=== PATIENT | male | born 1970 | race Caucasian/White ===

== ENCOUNTER 2017-09-11 19:44 | Emergency (ER) | payer SELFPAY ==
[~2017-09-11] VITALS: Ht 162.5 cm; Wt 99.8 kg
[2017-09-11] MEDS ORDERED: AUGMENTIN 875-875 MG PO (21:40)
[2017-09-11] MEDS ORDERED: PROAIR HFA8.5 GM INH (22:01)
[2017-09-11] MEDS ORDERED: LEVAQUIN750 M1 PO (22:01)
== END 2017-09-11 22:05 | disposition home or self-care (01) ==
LOC: ED 19:44
DX: J18.9 Pneumonia, unspecified organism (principal); H65.93 Unspecified nonsuppurative otitis media, bilateral; I10 Essential (primary) hypertension

== ENCOUNTER 2017-10-26 07:51 | Inpatient (IN) | payer BC ==
[~2017-10-26] VITALS: Ht 162.5 cm; Wt 84.9 kg
[2017-10-26] VITALS (10 sets, daily range): BP systolic 126–176; BP diastolic 72–120
--- NOTE | ~2017-10-26 | PROC NOTE ---
[place], [place] PROCEDURE NOTE NAME: [facility]LE [id number] UNIT #: [id number] ROOM: 421 DOCTOR: DAVID GREENE MD,BERTRAM BIRTHDATE: [birth year] DOS: 10/29/2017 PROCEDURE NOTE Left-sided thoracentesis, ultrasound evaluation. PREOPERATIVE DIAGNOSIS: The patient with large left-sided pleural fluid. POSTOPERATIVE DIAGNOSIS: Removal of 1150 mL. Pleural fluid noted mildly hemorrhagic from the left pleural space without any difficulty or complication. PROCEDURE DESCRIPTION: Informed consent obtained for the patient. The patient was placed in a sitting position. Ultrasound was done on the patient's left side. The BiPAP for thoracentesis was ordered and marked. Skin was cleaned with chlorhexidine solution. Sterile field was achieved. Lidocaine 1% was administered in the skin intercostal space during administration of local anesthetic for this patient. The left pleural space was entered without any difficulty. Small amount of fluid was aspirated, which are noted mildly hemorrhagic. After that small incision given in the skin, Turkel thoracentesis catheter introduced into the incision into the left pleural space. An 1150 mL of pleural fluid was obtained for the patient ____ for the standpoint. Post-thoracentesis, ultrasound of the patient shows resolution of the pleural fluid completely. Chest x-ray done postprocedure shows marked improvement in aeration of the left lung without any pneumothorax. The pleural fluid from the right side, which is noted at least moderately. It is also assessed with the ultrasound. Pleural fluid was sent for the appropriate testing if necessary. BERTRAM HERNANDEZ MD CM:PROCNOTE:PROCEDURE NOTE [id number] BERTRAM GREENE MD
--- NOTE | ~2017-10-26 | PR ---
[place], [place] PROGRESS NOTE NAME: KYLE MICHELLE [facility] #: [id number] UNIT #: [id number] ROOM: 421 DOCTOR: DAVID GREENE MD,BERTRAM BIRTHDATE: [birth year] DOS: 10/30/2017 PULMONARY PROGRESS NOTE SUBJECTIVE: The patient has been noted comfortable, resting, sitting on the bed, was not noted without any symptoms of acute chest pain. Shortness of breath continued to resolve. Thoracentesis, left side was completed yesterday with large volume of pleural fluid was removed. The patient has not been noted symptoms of chest pain or any hemoptysis. Denies symptoms of coughing or any sputum expectoration. Denies symptoms of abdominal pain, nausea or vomiting. The patient has not been reported any edema or pain of the lower extremities. The remaining review of systems was noted as negative. OBJECTIVE: VITAL SIGNS: Normal temperature, respiratory rate 18, heart rate 83, blood pressure 130/85. Pulse oxygen saturation on room air 93% saturation. It was noted at rest. HEENT: The patient shows jylz-ol-sgozrpkd obesity. NECK: Supple. Head was atraumatic. Eye nonicterus. CARDIOVASCULAR: S1, S2 is audible. LUNGS: Noted with decreased breath sounds in the right lower lung. Remaining lung was clear. ABDOMEN: Soft, nontender, bowel sounds present. EXTREMITIES: Without any acute edema. CENTRAL NERVOUS SYSTEM: Cranial nerves 2-12 intact. MUSCULOSKELETAL: The patient noted without any acute deformity. VISIBLE SKIN: No lesions or rashes. LABORATORY DATA: CBC: WBC count 12.7, hemoglobin and hematocrit normal, platelet count were normal. BMP this morning, normal BUN and creatinine. Glucose 163, CO2 of 33. The chest x-ray of the patient post thoracentesis noted complete resolution of the pleural fluid and improvement in aeration of the left lung with moderate pleural fluid was noted. There was no finding of congestive heart failure. Pleural fluid analysis of yesterday of the left pleural fluid noted with a total of 198 WBCs with various differentials. Glucose 235. Total protein was 0.9, pH of 7.50. Cholesterol less than 50, albumin is 0.4, all consistent with a transudative effusion. IMPRESSION: 1. The patient with congestive heart failure, bilateral large pleural fluid still remaining pleural fluid and completely removed 2 days ago on the right side. 2. The patient with the diastolic dysfunction with congestive heart failure and/or debility. PLAN OF THERAPY: Thoracentesis will be repeated again in the right side to remove remaining pleural fluid. Continuation of diuretic bronchodilator treatment therapy, plan of management as in progress. Usual care, other supportive therapy, plan of care and management, plan of care. No other additional change in the treatment will be necessary. [place], [place] PROGRESS NOTE [facility]: [id number] UNIT #: [id number] ROOM: [facility] DOCTOR: BERTRAM MURPHY MD BIRTHDATE: [birth year] BERTRAM HERNANDEZ MD CM:PNTRANS [id number] BERTRAM GREENE MD 10/30/17 2322 interface
--- NOTE | ~2017-10-26 | EKG ---
[place], [place] ELECTROCARDIOGRAM REPORT [id number] UNIT #: [id number] ROOM: 421 DOCTOR: DAVID GREENE MD,BERTRAM BIRTHDATE: [birth year] DOS: 10/26/2017 Electrocardiogram was done on 10/26/2017 at 8:21 .m. The electrocardiogram showed normal sinus rhythm. The patient's heart rate 74 beats per minute. The LVH criteria would be met for this patient based on the current electrical leads voltage in the chest leads. T-wave inversion is also noted, most likely secondary to LVH ____. T-wave inversion was also noted in the lead 2. Prolonged QTC interval was also noted. BERTRAM HERANNDEZ MD CM:EKGRPT:ELECTROCARDIOGRAM REPORT 1040 [id number] BERTRAM GREENE MD
--- NOTE | ~2017-10-26 | PROC NOTE ---
[place], [place] PROCEDURE NOTE [id number] UNIT #: [id number] ROOM: 421 DOCTOR: DAVID GREENE MD,BERTRAM BIRTHDATE: [birth year] DOS: 10/31/2017 PREOPERATIVE DIAGNOSIS: Large recurrent right pleural fluid. POSTOPERATIVE DIAGNOSIS: Removal of 1750 mL of pleural fluid on the right side without any difficulty completely. PROCEDURE: Right-sided thoracentesis with ultrasound guidance. PROCEDURE DESCRIPTION: Informed consent was obtained from the patient. The patient was placed in a sitting position. Ultrasound of the chest was already performed. The site of thoracentesis, posterior lower chest wall was marked. After that, skin was cleaned with chlorhexidine solution, 1% lidocaine was administered in the skin at intercostal space without difficulty. A small amount of fluid was aspirated from the right pleural space. During administration of local anesthetic after that, a small incision was given in the skin. Turkel thoracentesis catheter was introduced through the incision into the right pleural space. A total of 1750 mL pleural fluid removed with a vacuum bottle without any difficulty. Procedure is well tolerated by the patient. Chest x-ray at this time was deferred. Ultrasound, which was performed at the end of the completion of thoracentesis shows minimal remaining pleural fluid at this time and there was no evidence of pneumothorax suspected. Chest x-ray will be done in the morning to reassess the pleural fluid bilaterally. Pleural fluid was not sent for any testing as it is not necessary. The fluid characteristic serology is known as a transudative effusion with earlier thoracentesis, which was done about 3 days ago. BERTRAM HERNANDEZ MD CM:PROCNOTE:PROCEDURE NOTE 1043 [id number] BERTRAM GREENE MD
--- NOTE | ~2017-10-26 | PR ---
[place], [place] PROGRESS NOTE NAME: KYLE MICHELLE [facility] #: [id number] UNIT #: [id number] ROOM: 421 DOCTOR: DAVID GREENE MD,BERTRAM BIRTHDATE: [birth year] DOS: 10/31/2017 SUBJECTIVE: He has been noted comfortable at this time. Shortness of breath resolving. He was continued on high dose diuretic, Lasix 40 mg b.i.d. The patient was not noted any symptoms of chest pain or any hemoptysis. He denies symptoms of nausea or vomiting. Denies any edema or pain in lower extremity this morning. Denies symptoms of headache or diplopia. Remaining systems were reviewed. They were noted all negative. OBJECTIVE: VITAL SIGNS: Normal temperature, respiratory rate of 18-20, heart rate 88-94, blood pressure 133/70 to 119/80. The pulse oxygen saturation on room air was 92% saturation. HEENT: Head was atraumatic. Eyes nonicterus. NECK: Supple. CARDIOVASCULAR: S1, S2 audible. LUNGS: Noted with decreased breaths in the lower portion of the lungs, more on the right than the left side. ABDOMEN: Soft, nontender. Bowel sounds present. EXTREMITIES: The patient was noted without any acute edema. SKIN: Visible, skin, no lesions or rashes. MUSCULOSKELETAL: Without any acute deformities. CENTRAL NERVOUS SYSTEM: Cranial nerves 2-12 intact without any focal deficit. LABORATORY DATA: BMP today, glucose of 180, BUN and creatinine were normal, potassium 3.4, carbon dioxide 35. The CBC of the patient was noted as normal. Ultrasound of the chest of the patient done this morning on bilateral shows recurrence of small pleural fluid for left side, which has recurred after the thoracentesis. A large pleural fluid was noted on the right side. IMPRESSION: 1. The patient with bilateral pleural fluid with recurrent pleural fluid with significant increase of the right pleural fluid was noted. The patient currently noted large pleural fluid at this time and small pleural fluid in the left side as well secondary to congestive heart failure, diastolic dysfunction. 2. Hypokalemia and metabolic alkalosis secondary to diuretics. PLAN OF MANAGEMENT: Management of the congestive heart failure per Cardiology service to follow the recommendations. Continue bronchodilator. Thoracentesis will be repeated again on the right side today for further care. Any additional change in treatment recommended the patient after thoracentesis will be ordered accordingly. Other supportive therapy, plan of management, care plan and treatment and therapies. Chest x-ray done this morning for the patient does show evidence of pleural fluid right side for the patient and blunting of the left costophrenic angle with the possible mild cardiomegaly. [place], [place] PROGRESS NOTE [id number] UNIT #: [id number] ROOM: [facility] DOCTOR: BERTRAM MURPHY MD BIRTHDATE: [birth year] BERTRAM HERNANDEZ MD CM:GIOVANNY [id number] [id number] BERTRAM GREENE MD 11/01/17 0016 interface
--- NOTE | ~2017-10-26 | PR ---
[place], [place] PROGRESS NOTE NAME: KYLE MICHELLE [facility] #: [id number] UNIT #: [id number] ROOM: 421 DOCTOR: ERICA FLOWERS MD BIRTHDATE: [birth year] DOS: SUBJECTIVE: The patient was seen at his bedside today on 10/29/2017 with several family members in attendance. He is a 47-year-old man with a history of a bicuspid aortic valve who presented to the hospital with progressive heart failure. Echocardiography demonstrates that his left ventricle is normal in size with normal segmental wall motion. He does have severe concentric left ventricular hypertrophy with normal systolic function. The ejection fraction was 70%. He had restrictive diastolic dysfunction. The aortic valve was bicuspid with mild aortic insufficiency and severe stenosis. The patient had a peak valve gradient of 67 mmHg with a mean gradient of 41 mmHg and a valve area of 0.6 cm2. Since he has been in the hospital, he has had bilateral thoracenteses for pleural effusions and now is breathing better. He has been diuresing gradually. He still does have significant ankle edema, however. PHYSICAL EXAMINATION: VITAL SIGNS: On exam, today, his pulse is 82 and regular, blood pressure is 106/70. He is afebrile. He weighs 88.5 kg and has a body mass index of 33.5. NECK: Supple. He does have jugular distention with hepatojugular reflux. Carotids are full. LUNGS: Respirations are unlabored. He has decreased breath sounds at the bases. HEART: Regular rhythm with a grade 4/6 late peaking systolic ejection murmur along the left sternal border. I did not hear a diastolic murmur. The first and second heart sounds are surprisingly well preserved. ABDOMEN: Soft and normally active without masses, organomegaly or bruits. EXTREMITIES: 2+ edema to the mid calf. IMPRESSION: 1. Bicuspid aortic valve with aortic stenosis. 2. Oisaa-pp-qiwnorn diastolic congestive heart failure exacerbated by valvular heart disease. 3. Type 2 diabetes mellitus. 4. Essential hypertension. 5. Bilateral pleural effusions. PLAN: The patient and I discussed his options at length with his in attendance. He has decided to proceed with an evaluation for valve replacement. He would prefer to do this as an outpatient. At this point, he still appears to be fluid overloaded and we will therefore increase his diuretics. The patient does have a very loud second heart sound. This would indicate that the valve is still relatively pliable. I am concerned that a substantial component of his heart failure is due to diastolic dysfunction rather than severe aortic stenosis; however, the diastolic dysfunction is probably exacerbated by the aortic stenosis. For now, we will increase his diuretics and continue to monitor fluid status in the hospital. I thank the hospitalist physicians for asking our advice regarding the patient's [place], [place] PROGRESS NOTE NAME: KYLE MICHELLE UNIT #: [id number] ROOM: 421 DOCTOR: ERICA FLOWERS MD BIRTHDATE: [birth year] care. ERICA FLOWERS MD CM:PNTRANS [id number] ERICA FLOWERS MD 10/30/17 1514 interface
--- NOTE | ~2017-10-26 | EKG ---
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
--- NOTE | ~2017-10-26 | PROC NOTE ---
[place], [place] PROCEDURE NOTE NAME: KYLE MICHELLE [facility] #: [id number] UNIT #: [id number] ROOM: 421 DOCTOR: DAVID GREENE MD,BERTRAM BIRTHDATE: [birth year] DOS: 10/28/2017 PROCEDURE NOTE Right sided thoracentesis, ____. PREOPERATIVE DIAGNOSIS: The patient with large right pleural fluid. POSTOPERATIVE DIAGNOSES: Removal of 1250 mL of pleural fluid from the right pleural space without any difficulty with some residual fluid, still noted post-thoracentesis. PROCEDURE DESCRIPTION: Informed consent obtained from the patient. The patient sat in a seating position. Ultrasound of the chest was already performed. The thoracentesis site of the patient was marked in the right lower chest wall. Skin was cleaned with chlorhexidine solution. After that, 1% lidocaine was administered in the skin intercostal space. After good infiltration with lidocaine, the right pleural space entered, small amount of fluid was aspirated. After that small incision given in the skin. Turkel thoracentesis catheter introduced into the incision into the right pleural space without any difficulty. A total of 1250 cc of pleural fluid was removed. Pleural fluid was present, but further removal of fluid was canceled because the patient is developing significant cough. Chest x-ray, pot thoracentesis shows improvement in the aeration of the lung on the left side as well. The finding of congestive heart failure, still noted with some residual small pleural fluid on the right side. Pleural fluid sent for all the appropriate testing. Because of this continued to have nonproductive cough. I deferred the thoracentesis of the left side to be done tomorrow morning. BERTRAM HERNANDEZ MD CM:PROCNOTE:PROCEDURE NOTE 1108 2331 BERTRAM GREENE MD
--- NOTE | ~2017-10-26 | PR ---
[place], [place] PROGRESS NOTE NAME: KYLE MICHELLE [facility] #: [id number] UNIT #: [id number] ROOM: 421 DOCTOR: DAVID GREENE MD,BERTRAM BIRTHDATE: [birth year] DOS: 10/29/2017 PULMONARY PROGRESS NOTE SUBJECTIVE: The patient was noted comfortable at this time, resting on the bed. He has a thoracentesis done yesterday with large volume fluid, which was removed from the left side, which was noted as an adequate removal of the pleural fluid. The patient was planned for thoracentesis of the left side to be done today. The left-sided thoracentesis was not done because of severe coughing, which occurred post-procedure and lasted for about an hour. He had not been noted with any symptoms of chest pain. The patient's shortness of breath has been noted decreased, but not completely resolved. There were no symptoms of chest pain, coughing or sputum expectoration or any abdominal pain. OBJECTIVE: VITAL SIGNS: Normal temperature, respiratory rate 18, heart rate 81, blood pressure 118/74, pulse oxygen saturation recorded on room air 94% saturation. HEENT: Examination shows head was atraumatic. Eyes nonicterus. NECK: Supple. CARDIOVASCULAR: S1, S2 audible. LUNGS: The patient noted with decreased breaths in the lower portion of the lungs bilaterally. ABDOMEN: Soft, nontender, mild to moderate obesity. Bowel sounds present. EXTREMITIES: Without any acute edema. CENTRAL NERVOUS SYSTEM: Cranial nerves 2-12 intact. No focal deficit. MUSCULOSKELETAL: Without any acute deformities. LABORATORY DATA: CBC of the patient this morning; WBC count 12.3, hemoglobin and hematocrit normal, platelet count was normal. Culture of the pleural fluid noted no bacterial growth. The BMP of the patient this morning; glucose 160, BUN 17, creatinine 1.32, CO2 37, chloride of 96. Chest x-ray post-procedure for the patient showed persistent left pleural fluid with improvement and reduction of the right pleural fluid; however, this pleural fluid still noted in the right side. Pulmonary venous congestion marking was also noted. Pleural fluid analysis of the patient noted at only 196 WBC with a differential predominance of lymphocytes to 51% and 25% macrophages. The glucose noted 122, protein only 0.9. The LDH is 31, pH 7.54, cholesterol less than 50. All the pleural fluid noted consistent with transudative pleural effusion. IMPRESSION: 1. Congestive heart failure, most likely bilateral pleural fluid, less likely any other etiology, but the congestive heart failure with diastolic dysfunction. 2. Moderate obesity. 3. Overall debility. 4. Bilateral pleural fluid. PLAN OF MANAGEMENT: Continuation of bronchodilators, oxygen supplementation and diuretics. The patient is currently getting Lasix 40 mg b.i.d. Thoracentesis of the left side will be done today. The pleural fluid assessed with the ultrasound, noted with a large pleural fluid in the left side, which will be [place], [place] PROGRESS NOTE NAME: KYLE MICHELLE UNIT #: [id number] ROOM: 421 DOCTOR: DAVID GREENE MD,BERTRAM BIRTHDATE: [birth year] treated with thoracentesis. Right side was also assessed with ultrasound, which still showed remaining moderate size pleural effusion. Continuation of other therapy, plan of management. Additional treatment changes will be done after the procedure as necessary. BERTRAM HERNANDEZ MD CM:PNTRANS 1424 235 BERTRAM GREENE MD 10/29/17 2352 interface
--- NOTE | ~2017-10-26 | CON ---
[place], [place] REPORT OF CONSULTATION NAME: KYLE MICHELLE [facility] #: [id number] UNIT #: [id number] ROOM: 421 DOCTOR: DAVID GREENE MDBERTRAM BIRTHDATE: [birth year] DOS: 10/28/2017 PULMONARY CONSULTATION, EVALUATION AND MANAGEMENT CONSULTATION REQUESTED BY: Hospitalist Services. REASON FOR CONSULTATION: Assessment of current pleural effusions. HISTORY OF PRESENT ILLNESS: This is a 47-year-old male patient without any known pulmonary condition, has been noted with a history of bicuspid aortic valve as well as history of bronchial asthma, presented to the hospital as he has been noted with progressive increased shortness of breath ongoing for several weeks to months. The patient's shortness of breath has worsened in the past couple of days. He was also noted with increased edema of the lower extremities as well. The patient noted symptoms of orthopnea as well. He has been noted with a cough, which is described as nonproductive. He came into the Emergency Room for further assessment. He was brought to the Emergency Room by the family members in a private car. The patient has been currently hospitalized. The chest x-ray was noted with evidence of congestive heart failure, bilateral pleural fluid. He denies symptoms of chest pain or any acute hemoptysis. The patient denied symptoms of fever or chills. He has been asked to be seen for assessment of current respiratory symptoms and pleural effusions. The patient reported reduction of the symptoms but still noted with cough. He is still noted with shortness of breath, which is currently occurring with exertion and orthopnea was also noted intermittently. REVIEW OF SYSTEMS: CONSTITUTIONAL: Noted symptoms of fatigue and tiredness, without any symptoms of fever or chills. EYES: Denies burning, redness, or tenderness. EARS, NOSE, THROAT: Denies sore throat, hoarseness, otalgia, postnasal drainage, or epistaxis. CARDIOVASCULAR: Denies any anginal pain or palpitation. Noted increased edema of the lower extremities recently. History of bicuspid aortic valve. GASTROINTESTINAL: Denies dysphagia, nausea, vomiting, diarrhea, abdominal pain, hematemesis, melena, hematochezia, dysphagia, or abnormal weight loss. GENITOURINARY: Denies dysuria, suprapubic pain, hematuria, urinary incontinence, or urinary retention. SKIN: Denies lesions or rashes. MUSCULOSKELETAL: Denies acute joint pain, redness, or tenderness. CENTRAL NERVOUS SYSTEM: No dizziness, diplopia, syncopal episode or general weakness reported. Remaining systems were reviewed, they were noted all negative. PAST MEDICAL HISTORY: 1. Bronchial asthma, severity unknown. 2. Bicuspid aortic stenosis, which is congenital. 3. Essential hypertension. 4. Past hospitalization and leaving against medical advice. [place], [place] REPORT OF CONSULTATION NAME: KYLE MICHELLE UNIT #: [id number] ROOM: [facility] DOCTOR: BERTRAM MURPHY MD BIRTHDATE: [birth year] SOCIAL HISTORY: The patient stated he is , lives at home, has 2 children. Noted no past tobacco, alcohol or illicit drug use. FAMILY HISTORY: The patient's father from complication of lung cancer at the age of 7272 years old and mother at the age of 6969 years old from complications of metastatic breast cancer. HOME MEDICATIONS: Listed as use of ProAir HFA inhaler p.r.n. use, aspirin, and lisinopril. DRUG ALLERGIES: Noted with no known drug allergies. PHYSICAL EXAMINATION: GENERAL: A 47-year-old male who has been currently noted awake and alert at this time, resting on his bed without any acute distress at the time of the assessment. VITAL SIGNS: Height and weight were recorded by the nursing staff on admission, with a height of 5 feet 4 inches and weight of 202 pounds, BMI 34.7. VITAL SIGNS: Show normal temperature, respiratory rate 18-20, heart rate 82-86, blood pressure 126/70-118/82. Pulse oxygen saturation on room air was 97% saturation; on admission it was 87%. HEENT: Examination shows [id number] obesity. Head was atraumatic. Eyes nonicterus. Oral mucosa moist. CARDIOVASCULAR: S1, S2 audible. LUNGS: Show absent breath sounds in the lower portion of lungs. Scattered crackles. No wheezing. ABDOMEN: Soft, mild obesity. Bowel sounds present. Nontender. EXTREMITIES: Without edema. VISIBLE SKIN: No lesions or rashes. CENTRAL NERVOUS SYSTEM: Noted cranial nerves 2-12 intact. No focal deficit. MUSCULOSKELETAL: No deformities. LABORATORY DATA: CBC on admission: WBC count 10.7, hemoglobin 17.6, hematocrit 53.8, and platelet count normal at 308,000. PT/PTT on 10/26/2017 normal. CMP on 10/26/2017: Glucose 228, BUN normal, creatinine normal. Albumin 1.8. Troponins noted minimally elevated at 0.83 and 0.87 on 10/26/2017 on admission. CBC on 10/27/2017: Hemoglobin 16.9, hematocrit 53.5, WBC count 12.1, platelet count normal. PT/PTT repeated again on 10/27/2017 normal. CMP on 10/27/2017: Glucose 216, BUN and creatinine normal. Albumin 1.7. CBC that was done this morning: Hemoglobin 16.3, hematocrit 51.1, platelet count normal. BMP that was done 10/28/2017: Glucose 163, BUN and creatinine normal, CO2 of 36. PT/PTT repeated again was noted as normal. MICROBIOLOGY: Blood culture from 10/26/2017, two sets, both were noted as no bacterial growth. Final culture results are pending. RADIOLOGY: Echocardiogram that was done on 10/26/[address] Hollis, reported with findings of severe diastolic dysfunction WAS noted with echocardiogram, severe aortic stenosis noted with a mean gradient of 67, the calculated area was noted as 0.6 cm2, trace aortic regurgitation was noted, [place], [place] REPORT OF CONSULTATION [facility]: [id number] #: [id number] ROOM: [facility] DOCTOR: DAVID GREENE MD,[facility] BIRTHDATE: [birth year] trace pericardial effusion was also noted. Chest x-ray that was done on admission was reviewed ____ later on 10/26/2017. Chest x-ray shows moderate size pleural fluid, pulmonary venous congestion markings. Chest x-ray repeated this morning at 08:00 hours, was also noted with bilateral pleural fluid remains persistent. The pleural fluid appears to be increased. IMPRESSION: The patient who has been currently admitted to the hospital with: 1. Acute congestive heart failure related to current severe aortic stenosis and congestive heart failure, diastolic dysfunction. There was no clinical evidence of pneumonia. There was no evidence of bronchial asthma exacerbation as well. 2. The patient with [id number] obesity as well. PLAN OF MANAGEMENT: Thoracentesis was planned to be done for this patient today. The thoracentesis is completed. The ultrasound of the chest was performed at bedside, noted with [id number] right pleural fluid and moderate size left pleural effusion as well. The pleural fluid will be analyzed ____. Continuation of other present medical management per intensivist. Supportive therapy, other plan of management and care plan. Additional treatment changes will be recommended for the patient based on progression of the illness. There was no need to use any antibiotics or corticosteroids or nebulized bronchodilators because there is no evidence of acute exacerbation of bronchial asthma. Ultrasound of the chest was personally performed. Thank you for allowing me to participate in the care of this patient. BERTRAM HERNANDEZ MD CM:CONSTR:REPORT OF CONSULTATION 1105 10/28/17 1980 interface
--- NOTE | ~2017-10-26 | PR ---
[place], [place] PROGRESS NOTE NAME: KYLE MICHELLE [facility] #: [id number] UNIT #: [id number] ROOM: 421 DOCTOR: ERICA FLOWERS MD BIRTHDATE: [birth year] DOS: 10/29/2017 SUBJECTIVE: The patient was seen at his bedside today, 10/30/2017 with family in attendance. He is getting very anxious for discharge. He has improved dramatically, but still does have some ankle edema. He states that his breathing is back to normal. He was told by his electromechanical inspector, Dr. Moreno, today that he should probably have another thoracentesis done tomorrow to drain the remaining fluid from his right pleural cavity. The patient is very frustrated by this because he knows that this means he will be in the hospital at least another day. From my perspective, he remains on intravenous diuretics and this is also delaying his discharge. PHYSICAL EXAMINATION: VITAL SIGNS: Today, his pulse is 96 and regular, blood pressure is 137/85. He is afebrile. NECK: Supple. He has no jugular distention. He does have hepatojugular reflux. Carotids are full. LUNGS: Respirations are unlabored. His left lung is clear. He does have dullness and decreased breath sounds at the right base. HEART: Has a regular rhythm with a grade 4/6 late peaking systolic ejection murmur along the left sternal border. There is no diastolic murmur. First and second heart sounds are surprisingly well preserved. ABDOMEN: Benign. EXTREMITIES: Showed 2+ edema on the right, 1+ edema on the left ankle. LABORATORY DATA: Sodium is 136, potassium 3.5, chloride 94, CO2 of 33, BUN 15, creatinine 1.19. The patient is nearing euvolemia and his electrolytes which show that he does have a hypochloremic metabolic alkalosis from his loop diuretics. I will be switching him today from intravenous to oral diuretics. From a cardiac standpoint, he can be discharged to home when cleared by his other physicians. As an outpatient in the very near future, he will need to be assessed by the Valve clinic at [facility] for possible aortic valve replacement. Part of his evaluation probably should include a transesophageal echocardiogram since the patient does have a loud S2 and significant diastolic dysfunction, which may be a major contributor to his heart failure. We thank the hospitalist physicians for asking our advice regarding his care. [place], [place] PROGRESS NOTE NAME: KYLE MICHELLE UNIT #: [id number] ROOM: 421 DOCTOR: ERICA FLOWERS MD BIRTHDATE: [birth year] ERICA FLOWERS MD CM:PNTRANS [id number] ERICA FLOWERS MD 10/31/17 1921 interface
[~2017-10-26 07:51] MED LIST: AUGMENTIN 875-875 MG PO; LEVAQUIN750 M1 PO; PROAIR HFA8.5 GM INH
[2017-10-26] MEDS ORDERED: BLOOD PRESSURE PO (08:00)
[2017-10-26] MEDS ORDERED: ASPRIN PO (08:01)
[2017-10-26 08:31] LABS: BASO # 0.1 10*3/uL (0.0-0.1); BASO % 0.6 % (0.0-1.0); EOS # 0.1 10*3/uL (0.0-0.4); EOS % 1.3 % (1.0-4.0); HEMATOCRIT 53.8 % (42.0-52.0); HEMOGLOBIN 17.6 g/dl (14.0-18.0); LYMPH # 2.1 10*3/uL (1.3-4.4); LYMPH % 19.2 % (27.0-41.0); MEAN CELL VOLUME 84.1 fl (80.0-94.0); MEAN CORPUSCULAR HGB 27.5 pg (27.0-31.0); MEAN CORPUSCULAR HGB CONC 32.7 g/dl (33.0-37.0); MEAN PLATELET VOLUME 11.8 fl (9.6-12.3); MONO # 0.6 10*3/uL (0.1-1.0); MONO % 5.8 % (3.0-9.0); NEUT # 7.8 10*3/uL (2.3-7.9); NEUT % 72.9 % (47.0-73.0); PLATELET COUNT AUTOMATED 308 10*3/uL (130-400); RED CELL DISTRI WIDTH 13.4 % (0-14.5); WHITE BLOOD COUNT 10.7 10*3/uL (4.8-10.8)
[2017-10-26 08:41] LABS: ACT PARTIAL THROMBO TIME 25.8 SECONDS (20.8-31.5)
[2017-10-26 08:46] LABS: ALBUMIN 1.8 gm/dl (3.1-4.5); ALKALINE PHOSPHATASE 67 U/L (45-117); BUN 16 mg/dl (7-24); CHLORIDE 103 mmol/L (98-107); CREATININE 1.25 mg/dL (0.70-1.30); LIPASE 184 U/L (73-393); POTASSIUM 4.6 mmol/L (3.5-5.1); SGOT/AST 15 IU/L (3-35); SGPT/ALT 20 U/L (12-78); SODIUM 141 mmol/L (136-145); TOTAL PROTEIN 6.8 gm/dL (6.4-8.2)
[2017-10-26 08:48] LABS: TROPONIN I 0.108 ng/ml (<0.045)
[2017-10-26] MEDS ORDERED: LISINOPRIL20 MG PO (13:24)
[2017-10-27] VITALS (7 sets, daily range): BP systolic 118–168; BP diastolic 72–90
[2017-10-27 06:41] LABS: BASO # 0.1 10*3/uL (0.0-0.1); BASO % 0.5 % (0.0-1.0); EOS # 0.2 10*3/uL (0.0-0.4); EOS % 1.7 % (1.0-4.0); HEMATOCRIT 53.5 % (42.0-52.0); HEMOGLOBIN 16.9 g/dl (14.0-18.0); LYMPH # 1.5 10*3/uL (1.3-4.4); LYMPH % 12.1 % (27.0-41.0); MEAN CELL VOLUME 85.7 fl (80.0-94.0); MEAN CORPUSCULAR HGB 27.1 pg (27.0-31.0); MEAN CORPUSCULAR HGB CONC 31.6 g/dl (33.0-37.0); MEAN PLATELET VOLUME 12.4 fl (9.6-12.3); MONO # 0.8 10*3/uL (0.1-1.0); MONO % 6.8 % (3.0-9.0); NEUT # 9.5 10*3/uL (2.3-7.9); NEUT % 78.4 % (47.0-73.0); PLATELET COUNT AUTOMATED 267 10*3/uL (130-400); RED BLOOD COUNT 6.24 10*6/uL (4.50-5.90); RED CELL DISTRI WIDTH 13.4 % (0-14.5); WHITE BLOOD COUNT 12.1 10*3/uL (4.8-10.8)
[2017-10-27 06:53] LABS: ALBUMIN 1.7 gm/dl (3.1-4.5); ALKALINE PHOSPHATASE 65 U/L (45-117); BUN 16 mg/dl (7-24); CHLORIDE 97 mmol/L (98-107); CHOLESTEROL 260 mg/dL (<200); CREATININE 1.26 mg/dL (0.70-1.30); FREE T4 0.98 ng/dl (0.76-1.46); HDL CHOLESTEROL 53 mg/dl (40-60); LDL CHOLESTEROL 163 mg/dL (9-159); PHOSPHOROUS 4.6 mg/dL (2.5-4.9); POTASSIUM 3.9 mmol/L (3.5-5.1); SGOT/AST 16 IU/L (3-35); SGPT/ALT 18 U/L (12-78); SODIUM 138 mmol/L (136-145); TOTAL PROTEIN 6.6 gm/dL (6.4-8.2); TRIGLYCERIDES 222 mg/dl (<150); VLDL CHOLESTEROL 44 mg/dL (6-40)
[2017-10-27 07:03] LABS: ACT PARTIAL THROMBO TIME 25.1 SECONDS (20.8-31.5)
[2017-10-27 08:32] LABS: VITAMIN D, 25-HYDROXY 8.7 ng/mL (30-100)
[2017-10-28] VITALS: BP 126/78; BP 128/76
[2017-10-28 06:29] LABS: BASO # 0.1 10*3/uL (0.0-0.1); BASO % 0.6 % (0.0-1.0); EOS # 0.3 10*3/uL (0.0-0.4); EOS % 2.9 % (1.0-4.0); HEMATOCRIT 51.1 % (42.0-52.0); HEMOGLOBIN 16.3 g/dl (14.0-18.0); LYMPH # 2.1 10*3/uL (1.3-4.4); LYMPH % 19.8 % (27.0-41.0); MEAN CELL VOLUME 85.7 fl (80.0-94.0); MEAN CORPUSCULAR HGB 27.3 pg (27.0-31.0); MEAN CORPUSCULAR HGB CONC 31.9 g/dl (33.0-37.0); MEAN PLATELET VOLUME 11.7 fl (9.6-12.3); MONO # 0.8 10*3/uL (0.1-1.0); MONO % 7.7 % (3.0-9.0); NEUT # 7.3 10*3/uL (2.3-7.9); NEUT % 68.7 % (47.0-73.0); PLATELET COUNT AUTOMATED 249 10*3/uL (130-400); RED BLOOD COUNT 5.96 10*6/uL (4.50-5.90); RED CELL DISTRI WIDTH 13.1 % (0-14.5); WHITE BLOOD COUNT 10.6 10*3/uL (4.8-10.8)
[2017-10-28 06:48] LABS: BUN 17 mg/dl (7-24); CHLORIDE 95 mmol/L (98-107); CREATININE 1.26 mg/dL (0.70-1.30); POTASSIUM 3.6 mmol/L (3.5-5.1); SODIUM 136 mmol/L (136-145)
[2017-10-28 06:59] LABS: ACT PARTIAL THROMBO TIME 25.7 SECONDS (20.8-31.5)
[2017-10-28 08:00] VITALS: BP 130/86; BP 130/87
[2017-10-28 09:47] LABS: BODY FLUID WBC 196 /uL
[2017-10-28 10:35] LABS: BF LYMPHOCYTES 51 %; BF MACROPHAGES 25 %; BF MESOTHELIALS 2 %; BF MONOCYTES 1 %; BF NEUTROPHILS 21 %
[2017-10-28 12:00] VITALS: BP 115/73
[2017-10-28 16:00] VITALS: BP 124/80
[2017-10-28 20:00] VITALS: BP 118/76; BP 130/72
[2017-10-29] VITALS: BP 143/78
[2017-10-29 06:35] LABS: BASO % 0.3 % (0.0-1.0); EOS # 0.3 10*3/uL (0.0-0.4); EOS % 2.3 % (1.0-4.0); HEMATOCRIT 49.2 % (42.0-52.0); HEMOGLOBIN 15.7 g/dl (14.0-18.0); LYMPH # 1.9 10*3/uL (1.3-4.4); LYMPH % 15.3 % (27.0-41.0); MEAN CELL VOLUME 84.2 fl (80.0-94.0); MEAN CORPUSCULAR HGB 26.9 pg (27.0-31.0); MEAN CORPUSCULAR HGB CONC 31.9 g/dl (33.0-37.0); MEAN PLATELET VOLUME 11.4 fl (9.6-12.3); MONO % 7.8 % (3.0-9.0); NEUT # 9.1 10*3/uL (2.3-7.9); PLATELET COUNT AUTOMATED 267 10*3/uL (130-400); RED BLOOD COUNT 5.84 10*6/uL (4.50-5.90); RED CELL DISTRI WIDTH 13.3 % (0-14.5); WHITE BLOOD COUNT 12.3 10*3/uL (4.8-10.8)
[2017-10-29 07:08] LABS: BUN 17 mg/dl (7-24); CHLORIDE 96 mmol/L (98-107); CREATININE 1.32 mg/dL (0.70-1.30); POTASSIUM 3.6 mmol/L (3.5-5.1); SODIUM 137 mmol/L (136-145)
[2017-10-29 08:00] VITALS: BP 127/83
[2017-10-29 12:00] VITALS: BP 118/74
[2017-10-29 15:52] LABS: BODY FLUID WBC 198 /uL
[2017-10-29 16:00] VITALS: BP 106/70
[2017-10-29 16:43] LABS: BF LYMPHOCYTES 54 %; BF MACROPHAGES 36 %; BF MESOTHELIALS 3 %; BF NEUTROPHILS 7 %
[2017-10-29 20:00] VITALS: BP 100/58; BP 140/86
[2017-10-30] VITALS: BP 132/76
[2017-10-30 06:11] LABS: BASO # 0.1 10*3/uL (0.0-0.1); BASO % 0.5 % (0.0-1.0); EOS # 0.3 10*3/uL (0.0-0.4); EOS % 2.6 % (1.0-4.0); HEMOGLOBIN 16.1 g/dl (14.0-18.0); LYMPH # 1.5 10*3/uL (1.3-4.4); LYMPH % 12.1 % (27.0-41.0); MEAN CELL VOLUME 84.7 fl (80.0-94.0); MEAN CORPUSCULAR HGB 27.3 pg (27.0-31.0); MEAN CORPUSCULAR HGB CONC 32.2 g/dl (33.0-37.0); MEAN PLATELET VOLUME 11.7 fl (9.6-12.3); MONO # 1.3 10*3/uL (0.1-1.0); NEUT # 9.5 10*3/uL (2.3-7.9); NEUT % 74.3 % (47.0-73.0); PLATELET COUNT AUTOMATED 269 10*3/uL (130-400); RED CELL DISTRI WIDTH 13.1 % (0-14.5); WHITE BLOOD COUNT 12.7 10*3/uL (4.8-10.8)
[2017-10-30 06:44] LABS: BUN 15 mg/dl (7-24); CHLORIDE 94 mmol/L (98-107); CREATININE 1.19 mg/dL (0.70-1.30); POTASSIUM 3.5 mmol/L (3.5-5.1); SODIUM 136 mmol/L (136-145)
[2017-10-30 08:00] VITALS: BP 130/85
[2017-10-30 12:00] VITALS: BP 137/85
[2017-10-30 16:00] VITALS: BP 106/56; BP 107/66
[2017-10-30 20:00] VITALS: BP 116/69
[2017-10-31] VITALS: BP 133/78
[2017-10-31 06:27] LABS: BASO # 0.1 10*3/uL (0.0-0.1); BASO % 0.5 % (0.0-1.0); EOS # 0.4 10*3/uL (0.0-0.4); HEMATOCRIT 48.9 % (42.0-52.0); HEMOGLOBIN 15.7 g/dl (14.0-18.0); LYMPH # 1.6 10*3/uL (1.3-4.4); MEAN CELL VOLUME 84.7 fl (80.0-94.0); MEAN CORPUSCULAR HGB 27.2 pg (27.0-31.0); MEAN CORPUSCULAR HGB CONC 32.1 g/dl (33.0-37.0); MEAN PLATELET VOLUME 11.7 fl (9.6-12.3); MONO % 9.4 % (3.0-9.0); NEUT # 7.4 10*3/uL (2.3-7.9); NEUT % 70.7 % (47.0-73.0); PLATELET COUNT AUTOMATED 260 10*3/uL (130-400); RED BLOOD COUNT 5.77 10*6/uL (4.50-5.90); RED CELL DISTRI WIDTH 13.2 % (0-14.5); WHITE BLOOD COUNT 10.5 10*3/uL (4.8-10.8)
[2017-10-31 06:52] LABS: BUN 16 mg/dl (7-24); CHLORIDE 95 mmol/L (98-107); CREATININE 1.29 mg/dL (0.70-1.30); POTASSIUM 3.4 mmol/L (3.5-5.1); SODIUM 138 mmol/L (136-145)
[2017-10-31 08:00] VITALS: BP 118/72; BP 119/80
[2017-10-31 12:00] VITALS: BP 103/69
== END 2017-10-31 14:02 | disposition left against medical advice (07) | DRG 186 ==
LOC: ED 07:51 → EDHOLD 10:00 → 4E 10:00
PROVIDERS: Emergency Medicine; Family Medicine; Internal Medicine; Internal Medicine Critical Care Medicine
PROC: 0W993ZZ Drainage of Right Pleural Cavity, Percutaneous Approach (ICD-10-PCS; principal; 2017-10-28)
PROC: BB4BZZZ Ultrasonography of Pleura (ICD-10-PCS; 2017-10-28)
PROC: 0W9B3ZZ Drainage of Left Pleural Cavity, Percutaneous Approach (ICD-10-PCS; 2017-10-29)
PROC: BB4BZZZ Ultrasonography of Pleura (ICD-10-PCS; 2017-10-29)
PROC: 0W993ZZ Drainage of Right Pleural Cavity, Percutaneous Approach (ICD-10-PCS; 2017-10-31)
PROC: BB4BZZZ Ultrasonography of Pleura (ICD-10-PCS; 2017-10-31)
DX: J90 Pleural effusion, not elsewhere classified (principal); E43 Unspecified severe protein-calorie malnutrition; I50.33 Acute on chronic diastolic (congestive) heart failure; E87.3 Alkalosis; R65.10 Systemic inflammatory response syndrome (SIRS) of non-infectious origin without acute organ dysfunction; Q23.1 Congenital insufficiency of aortic valve; I11.0 Hypertensive heart disease with heart failure; J45.909 Unspecified asthma, uncomplicated; E78.5 Hyperlipidemia, unspecified; E87.6 Hypokalemia; E11.65 Type 2 diabetes mellitus with hyperglycemia; T50.2X5A Adverse effect of carbonic-anhydrase inhibitors, benzothiadiazides and other diuretics, initial encounter; E66.9 Obesity, unspecified; Z87.01 Personal history of pneumonia (recurrent); Z82.49 Family history of ischemic heart disease and other diseases of the circulatory system; Z83.3 Family history of diabetes mellitus; Z80.1 Family history of malignant neoplasm of trachea, bronchus and lung; Z80.3 Family history of malignant neoplasm of breast; Z84.1 Family history of disorders of kidney and ureter; Z79.899 Other long term (current) drug therapy; Z79.82 Long term (current) use of aspirin; Z83.6 Family history of other diseases of the respiratory system; Z80.8 Family history of malignant neoplasm of other organs or systems; Y92.89 Other specified places as the place of occurrence of the external cause; Z68.34 Body mass index [BMI] 34.0-34.9, adult

== ENCOUNTER → 2018-04-21 | Outpatient (CLI) | payer BC ==
[~2018-04-21] MED LIST changes: +ASPRIN PO; +BLOOD PRESSURE PO; +FUROSEMIDE40 MG PO; +HYDRALAZINE HYD50 MG PO; +KLOR-CON M2020 ME1 PO; +LASIX20 MG PO; +LIPITOR40 MG PO; +LISINOPRIL20 MG PO; +LOPRESSOR25 MG PO; +VITAMIN D5000 UNI1 PO
[2018-04-21 08:59] LABS: BUN 11 mg/dl (7-24); CHLORIDE 102 mmol/L (98-107); CREATININE 1.35 mg/dL (0.70-1.30); POTASSIUM 3.4 mmol/L (3.5-5.1); SODIUM 142 mmol/L (136-145)
== END | disposition home or self-care (01) ==
LOC: LAB 08:04
PROVIDERS: Internal Medicine
DX: N17.9 Acute kidney failure, unspecified (principal)

== ENCOUNTER → 2018-06-11 | Outpatient (CLI) | payer BC ==
[2018-06-11 12:05] LABS: CREATININE 1.53 mg/dL (0.70-1.30); POTASSIUM 3.7 mmol/L (3.5-5.1)
== END | disposition home or self-care (01) ==
LOC: LAB 11:21
PROVIDERS: Physician Assistant
DX: E78.2 Mixed hyperlipidemia (principal); R60.0 Localized edema; N28.9 Disorder of kidney and ureter, unspecified; I38 Endocarditis, valve unspecified; I10 Essential (primary) hypertension; Q23.1 Congenital insufficiency of aortic valve; Z95.2 Presence of prosthetic heart valve

== ENCOUNTER → 2018-06-14 | Outpatient (CLI) | payer BC | END | disposition home or self-care (01) | LOC: RAD 10:33 | DX: J90 Pleural effusion, not elsewhere classified (principal); J18.8 Other pneumonia, unspecified organism; J98.11 Atelectasis; R05 Cough; R06.02 Shortness of breath; I11.0 Hypertensive heart disease with heart failure; I50.9 Heart failure, unspecified; E11.9 Type 2 diabetes mellitus without complications ==

== ENCOUNTER → 2019-07-11 | Outpatient (CLI) | payer OTHER | END | disposition home or self-care (01) | LOC: LAB 07:30 | DX: R79.89 Other specified abnormal findings of blood chemistry (principal) ==

== ENCOUNTER → 2021-01-26 | Outpatient (CLI) | payer OTHER | END | disposition home or self-care (01) | LOC: COVID19 15:24 | PROVIDERS: ATTEND Internal Medicine | DX: U07.1 COVID-19 (principal) ==

== ENCOUNTER → 2021-08-03 | Outpatient (CLI) | payer OTHER | END | disposition home or self-care (01) | LOC: LAB 10:02 | PROVIDERS: ATTEND Family Medicine | DX: R79.89 Other specified abnormal findings of blood chemistry (principal); R53.83 Other fatigue ==

== ENCOUNTER 2022-05-14 04:50 | Emergency (ER) | payer SELFPAY ==
[~2022-05-14] VITALS: Ht 175.2 cm; Wt 102.1 kg
[2022-05-14] MEDS ORDERED: BUMETANIDE2 MG PO (04:56)
[2022-05-14] MEDS ORDERED: NORMODYNE,TRAN200 MG PO (04:56)
[2022-05-14] MEDS ORDERED: ALDACTONE25 MG PO (04:57)
[2022-05-14] MEDS ORDERED: SILDENAFIL CIT100 MG PO (04:57)
[2022-05-14] MEDS ORDERED: TAB-A-VITE MUL1 EAC1 PO (04:58)
[2022-05-14 06:19] LABS: BASO # 0.1 10*3/uL (0.0-0.1); BASO % 0.5 % (0.0-1.0); EOS # 0.2 10*3/uL (0.0-0.4); EOS % 1.1 % (1.0-4.0); HEMATOCRIT 24.1 % (42.0-52.0); LYMPH # 0.8 10*3/uL (1.3-4.4); LYMPH % 5.8 % (27.0-41.0); MEAN CELL VOLUME 90.6 fl (80.0-94.0); MEAN CORPUSCULAR HGB 27.4 pg (27.0-31.0); MEAN CORPUSCULAR HGB CONC 30.3 g/dl (33.0-37.0); MEAN PLATELET VOLUME 10.4 fl (9.6-12.3); MONO # 0.9 10*3/uL (0.1-1.0); MONO % 6.8 % (3.0-9.0); NEUT # 11.4 10*3/uL (2.3-7.9); NEUT % 83.8 % (47.0-73.0); PLATELET COUNT AUTOMATED 336 10*3/uL (130-400); RED BLOOD COUNT 2.66 10*6/uL (4.50-5.90); RED CELL DISTRI WIDTH 13.5 % (0-14.5); WHITE BLOOD COUNT 13.7 10*3/uL (4.8-10.8)
[2022-05-14 06:21] LABS: POTASSIUM 5.2 mmol/L (3.4-5.1); TOTAL PROTEIN 7.2 gm/dL (6.0-8.0)
== END 2022-05-14 11:22 | disposition short-term general hospital (02) ==
LOC: ED 04:50
PROVIDERS: Emergency Medicine
DX: S36.899A Unspecified injury of other intra-abdominal organs, initial encounter (principal); I13.0 Hypertensive heart and chronic kidney disease with heart failure and stage 1 through stage 4 chronic kidney disease, or unspecified chronic kidney disease; E11.22 Type 2 diabetes mellitus with diabetic chronic kidney disease; N18.9 Chronic kidney disease, unspecified; I50.9 Heart failure, unspecified; Z99.2 Dependence on renal dialysis; X58.XXXA Exposure to other specified factors, initial encounter; Y93.89 Activity, other specified; Y92.89 Other specified places as the place of occurrence of the external cause; Y99.8 Other external cause status